=== PATIENT | male | born 1965 | race Caucasian/White ===

== ENCOUNTER 2025-06-20 10:42 | Day surgery (SDC) | payer SELFPAY ==
[2025-06-20] VITALS (8 sets, daily range): BP systolic 98–121; BP diastolic 71–79; PULSE 65–73; RESP 16; TEMP 36.2–37.3; O2SAT 95–100; BMI 28.2
[2025-06-20] MEDS: Lactated Ringers 1,000 ML 15 ML IV (11:42)
--- NOTE | 2025-06-20 11:58 | PCM.PRE.AN2 ---
ASA Classification* ASA Classification ASA Classification: 1 Assessment & Plan Anesthesia* Anesthesia Assessment Anesthesia Assessment: Discussed sedation and/or anesthesia options, risks, benefits, and alternatives with patient/parents/legal guardian/POA. Questions invited. The patient/parents/legal guardian/POA seems to understand and agrees to proceed with anesthesia plan. Reviewed the physical assessment, medical history, allergy history and patient home medications list prior to surgery/procedure/anesthetic and documented any changes. Performed airway and anesthesia risk assessments. 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 When Was Last Pacemaker Check QUESTION #4 FULL TEXT: You/Your Family Experience fever (hyperthermia) with Anesthesia Last Oral Intake Last Oral intake: Last Oral Intake NPO since 09:00 06/20/25 11:34 Meds taken in AM with sips of No 06/20/25 11:34 water? Meds patient instructed to take am of surgery PONV PONV - credit collections specialist: PONV - credit collections specialist Female No 06/14/25 13:59 HX of Motion Sickness No 06/14/25 13:59 HX of N/V After Surgery No 06/14/25 13:59 Non-Smoker Yes 06/14/25 13:59 Duration of Surgery greater No 06/14/25 13:59 than 60 minutes Number of Risk Factors 1 06/14/25 13:59 PONV Score Low Risk 06/14/25 13:59 Height & Weight Height & Weight: Anesthesia: Height & Weight Height 5 ft 8 in 06/20/25 11:34 Weight: 84.2 kg 06/20/25 11:34 Body Mass Index (BMI) 28.2 06/20/25 11:34 Respiratory Assessment Respiratory Assessment - credit collections specialist: Respiratory Tract Infection Hx - credit collections specialist Hx Respiratory Tract Infection No 06/14/25 13:59 STOP Sleep Apnea STOP Sleep Apnea - credit collections specialist: STOP Sleep Apnea - credit collections specialist Hx Hypertension No 06/14/25 13:59 Hx Sleep Apnea No 06/14/25 13:59 CPAP BIPAP Do you snore loudly (louder No 06/14/25 13:59 than talking or can be heard Do you often feel tired/ No 06/14/25 13:59 fatigued/ sleepy during daytime? Has anyone observed you stop No 06/14/25 13:59 breathing during sleep? STOP Results Negative 06/14/25 13:59 QUESTION #5 FULL TEXT : Do you snore loudly (louder than talking or can be heard through closed doors)? Tobacco Use History Tobacco Use History - credit collections specialist: Tobacco Use History - credit collections specialist Tobacco Use Smoking Status Never smoker 06/14/25 13:59 Hx Tobacco Use No 06/14/25 13:59 Years Smoking Packs Smoked per Day Smoking Cessation Date was within the last 15 years Hx Smoking Cessation Date Hx Smoking Cessation Counseling Hematologic Medial History Hematologic Hx - credit collections specialist: Hematologic Medical Hx - detention deputy Hx of Blood Transfusion No 06/14/25 13:59 Hx of Transfusion in last 3 No 06/14/25 13:59 Months Date of Last Transfusion (if within last 3 months) Ever experience any problems No 06/14/25 13:59 with transfusion(s)? Specify any problems Hx of Preganancy in last 3 N/A 06/14/25 13:59 Months Nurse Filling Out Transfusion VCHRISTIN 06/14/25 13:59 & Questions: Date: 06/14/25 06/14/25 13:59 Time: 14:01 06/14/25 13:59 Patient unable to answer at this time (ie. confused, unrespo /Reproduction History /Reproductive History - credit collections specialist: /Reproductive Hx- credit collections specialist Hx Now Gestational Age (in weeks): EDC: Hx Hx Para Hx Section SAB Does the father of the baby or his family experience fever w Father of the baby Malignant Hypertension history comment Active Medications Active Medications: Current Medications Generic Name Dose Route Start Last Admin Trade Name Freq PRN Reason Stop Dose Admin Lactated Ringer's 1,000 mls @ 15 mls/hr 06/20/25 11:15 06/20/25 11:42 IV 15 mls/hr .Q48H BRETT Administration PFSH Medical History Wears glasses Back pain Home Medications ?Medication ?Instructions ?Recorded ?Last Taken ?Type aspirin 81 mg tablet 81 mg PO DAILY 06/14/25 Unknown History atorvastatin 20 mg tablet (Lipitor) 20 mg PO QHS 06/14/25 Unknown History multivitamin (Daily Multi-Vitamin 1 tab PO DAILY 06/14/25 Unknown History tablet) niacin 250 mg tablet,extended 250 mg PO DAILY 06/14/25 Unknown History release (Endur-Acin) Allergy/AdvReac Type Severity Reaction Status Date / Time No Known Allergies Allergy Verified 06/20/25 11:33 Surgical History History of root canal procedure Hx of appendectomy Social History Smoking Status: Never smoker Review of Systems (Anesthesia) ROS Narrative System reviewed and no additional complaints, except as documented.
--- NOTE | 2025-06-20 12:31 | PCM.HP.STD ---
[facility] - General General Date of Admission: 06/20/25 Date of Service: 06/20/25 Chief Complaint: Screening colonoscopy HPI Narrative AMALIA HERNANDEZ, is a 60 M who presents [today for screening colonoscopy. He is never a colonoscopy in the past. He is not abdominal pain. He is not have any chest pain or shortness of breath. He does take aspirin and Lipitor on a daily basis along with a multivitamin.] [facility], [facility] Medical History Wears glasses Back pain Home Medications ?Medication ?Instructions ?Recorded ?Last Taken ?Type aspirin 81 mg tablet 81 mg PO DAILY 06/14/25 Unknown History atorvastatin 20 mg tablet (Lipitor) 20 mg PO QHS 06/14/25 Unknown History multivitamin (Daily Multi-Vitamin 1 tab PO DAILY 06/14/25 Unknown History tablet) niacin 250 mg tablet,extended 250 mg PO DAILY 06/14/25 Unknown History release (Endur-Acin) Allergy/AdvReac Type Severity Reaction Status Date / Time No Known Allergies Allergy Verified 06/20/25 11:33 Surgical History History of root canal procedure Hx of appendectomy Social History Smoking Status: Never smoker ROS Constitutional Constitutional: Denies fatigue, fever(s), poor appetite, weight gain or weight loss Gastrointestinal Gastrointestinal: Denies belching, bloating, change in bowel habits, change in stool character, chewing difficulty, coffee ground emesis, constipation, cramping, diarrhea, dyspepsia, dysphagia, early satiety, excessive flatus, fecal incontinence, heartburn, hematemesis, hematochezia, hemorrhoids, loose stools, melena, nausea, odynophagia, rectal bleeding, tenesmus, vomiting or weight changes Vital Signs Vital Signs Vital Signs: 06/20/25 11:34 06/20/25 11:34 06/20/25 11:59 Temperature 99.1 F 99.1 F Temperature Source Temporal Pulse Rate 66 66 Respiratory Rate 16 16 Respiratory Pattern Normal Blood Pressure 121/71 H 121/71 H Blood Pressure Mean 87 Blood Pressure Source Monitor Blood Pressure Position Semi-Fowlers Blood Pressure Location Right Arm Pulse Ox 98 98 Oxygen Delivery Method Room Air Room Air Weight Weight: 185 lb 10.067 oz Body Mass Index (BMI) 28.2 Physical Exam Const alert, oriented x3, no apparent distress and healthy appearing General Appearance: cooperative GI normal to inspection, nondistended, normoactive bowel sounds, soft to palpation, non-tender and non-distended Percussion: normal to percussion Rectal Exam: deferred Assessment & Plan Assessment/Plan (1) Encounter for screening colonoscopy: PLAN: He was explained alternatives, risk and benefits include not withstanding bleeding, infection, sepsis, perforation, need for return to . He will have an ASA of 3.
--- OUTSIDE RECORDS SUMMARY | 2025-06-20 13:12 | XMS RPT_ITS | CCD ---
Author Organization [facility] [employer] DIRECT[facility] Care Team Providers Care Copying Machine Mechanic Name Role Phone Ric Shea Primary Care Unavailable FriendGonzalo Attending Unavailable Encounters Encounter Date Encounter Type Care Provider Facility Start: 06-20-2025 [facility] Facility:[facility] Payers Date Payer Category Payer Self-pay Unknown [id number] Summary Purpose Family History No Family History Records Found Advance Directives No Advanced Directives Records Found Additional Source Comments (unrecognized sect ion and content) No Status Records Found INFORMATION SOURCE (unrecogn ized section and content) DATE CREATED AUTHOR 05/17/2025 [facility] FOR RECORDS PERTAINING TO PATIENTS WHO ARE OR HAVE BEEN ENROLLED IN A CHEMICAL DEPENDENCY/SUBSTANCEABUSE PROGRAM, SOME INFORMATION MAY BE OMITTED. This clinical summary was aggregated from multiple sources. Caution should be exercised in using it in the provision of clinical care. This summary normalizes information from multiple sources, and as a consequence, information in this document may materially change the coding, format and clinical context of patient data. In addition, data may be omitted in some cases. CLINICAL DECISIONS SHOULD BE BASED ON THE PRIMARY CLINICAL RECORDS. [employer] provides no warranty or guarantee of the accuracy or completeness of information in this document.
--- NOTE | 2025-06-20 13:40 | PCM.POST.ANE ---
Anesthesia: Postop Eval I Current Vital Signs Temperature: 97.1 F Pulse Rate: 73 Blood Pressure: 106/74 Respiratory Rate: 16 Pulse Ox: 96 Oxygen Delivery Method: Room Air Assessment Airway patent: Yes Spontaneous unlabored respirations: Yes Mental status: Asleep nausea: No Vomiting: No Anesthesia Complication: No Fluid Hydration Crystalloid volume administer (ml): 500 Total IV fluid infused: 500 Progress Note Anesthesia document: Postop Eval 1 completed: Yes
--- NOTE | 2025-06-20 13:48 | OP.COLON_ITS ---
Patient Name: Chencho Forbes Procedure Date: 06/20/2025 1:07 PM Date of : 1965 Age: 60 Procedure: Colonoscopy Indications: Screening for colorectal malignant neoplasm Providers: Gonzalo Nieto DO Referring MD: Ric Shea Medicines: Monitored Anesthesia Care Patient Profile: This is a 60 year old male. Refer to note in patient chart for documentation of history and physical. Last Colonoscopy: none. The patient's first colonoscopy is today. Complications: No immediate complications. Procedure: Pre-Anesthesia Assessment: - Prior to the procedure, a History and Physical was performed, and patient medications and allergies were reviewed. The patient is competent. The risks and benefits of the procedure and the sedation options and risks were discussed with the patient. All questions were answered and informed consent was obtained. Patient identification and proposed procedure were verified by the physician in the pre-procedure area. Mental Status Examination: alert and oriented. Airway Examination: normal oropharyngeal airway and neck mobility. Respiratory Examination: clear to auscultation. CV Examination: normal. Prophylactic Antibiotics: The patient does not require prophylactic antibiotics. Prior Anticoagulants: The patient has taken no anticoagulant or antiplatelet agents. ASA Grade Assessment: II - A patient with mild systemic disease. After reviewing the risks and benefits, the patient was deemed in satisfactory condition to undergo the procedure. The anesthesia plan was to use monitored anesthesia care (MAC). Immediately prior to administration of medications, the patient was re-assessed for adequacy to receive sedatives. The heart rate, respiratory rate, oxygen saturations, blood pressure, adequacy of pulmonary ventilation, and response to care were monitored throughout the procedure. The physical status of the patient was re-assessed after the procedure. After I obtained informed consent, the scope was passed under direct vision. Throughout the procedure, the patient's blood pressure, pulse, and oxygen saturations were monitored continuously. The Colonoscope was introduced through the anus and advanced to the cecum, identified by appendiceal orifice and ileocecal valve. The colonoscopy was performed without difficulty. The patient tolerated the procedure well. The quality of the bowel preparation was adequate. The ileocecal valve, appendiceal orifice, and rectum were photographed. Scope In: 1:20:24 PM Scope Withdrawal Time 0 hours 9 minutes 37 seconds Scope Out: 1:33:29 PM Total Procedure Duration Time 0 hours 13 minutes 5 seconds Findings: The perianal and digital rectal examinations were normal. Two small-mouthed diverticula were found in the recto-sigmoid colon. The exam was otherwise without abnormality on direct and retroflexion views. Impression: - Diverticulosis in the recto-sigmoid colon. - The examination was otherwise normal on direct and retroflexion views. - No specimens collected. Recommendation: - Discharge patient to home. - Resume previous diet. - Continue present medications. - Repeat colonoscopy in 10 years for screening purposes. Procedure Code(s): --- Professional --- G0121, Colorectal cancer screening; colonoscopy on individual not meeting criteria for high risk CPT copyright 2021 [employer]. All rights reserved. The codes documented in this report are preliminary and upon steam pipe fitter review may be revised to meet current compliance requirements. Gonzalo Nieto DO 06/20/2025 1:48:37 PM This report has been signed electronically. Number of Addenda: 0 Note Initiated On: 06/20/2025 1:07 PM
--- NOTE | 2025-06-20 13:49 | OP.PROVAT_ITS ---
06/20/2025 Ric Shea Re : Colonoscopy procedure for Chencho Forbes Dear Shabbir This procedure was performed on Friday, June 20, 2025. My impressions and recommendations are as follows: Impressions : - Diverticulosis in the recto-sigmoid colon. - The examination was otherwise normal on direct and retroflexion views. - No specimens collected. Recommendations : - Discharge patient to home. - Resume previous diet. - Continue present medications. - Repeat colonoscopy in 10 years for screening purposes. My findings are described in the full procedure note, which is enclosed. If I can be of further assistance, please feel free to contact me at . Sincerely, Gonzalo Nieto, 06/20/2025 1:48:37 PM This report has been signed electronically.
--- NOTE | 2025-06-20 15:27 | PCM.POSTANE2 ---
Anesthesia Postop Eval I Sum Postop Eval Completion status Anesthesia document: Postop Eval 1 completed: Yes Anesthesia Postop Eval I Summary Anesthesia Postop Eval I Summary: Anesthesia Postop Eval I: Assessment Summary Airway patent Yes 06/20/25 13:41 [email or web address] Spontaneous unlabored Yes 06/20/25 13:41 [email or web address] respirations Mental status Asleep 06/20/25 13:41 [email or web address] nausea No 06/20/25 13:41 [email or web address] Vomiting No 06/20/25 13:41 [email or web address] Anesthesia Postop Eval I: Fluid Summary Crystalloid volume administer 500 06/20/25 13:41 [email or web address] (ml) Colloids volume administered ( ml) Blood Product volume administered (ml) Total IV fluid infused 500 06/20/25 13:41 [email or web address] Anesthesia Postop Eval I: Summary Notes Anesthesia Complication No 06/20/25 13:41 [email or web address] Anesthesia Complication Comment: Post-operative progress note Anesthesia: Postop Eval II Evaluation Mental status: Awake and Calm Pain Level: 1 nausea: No Vomiting: No Complications Anesthesia Complication: No
== END 2025-06-20 14:33 | disposition home or self-care (01) ==
LOC: EN 10:50 → AC 10:51
PROVIDERS: PCP Family Medicine; Referring Provider Family Medicine; Visit Provider Internal Medicine Gastroenterology
PROC: 0DJD8ZZ Inspection of Lower Intestinal Tract, Via Natural or Artificial Opening Endoscopic (ICD-10-PCS; CPT 45378; principal; 2025-06-20 12:25)
DX: Z12.11 Encounter for screening for malignant neoplasm of colon (principal); K57.90 Diverticulosis of intestine, part unspecified, without perforation or abscess without bleeding; Z79.82 Long term (current) use of aspirin; Z79.899 Other long term (current) drug therapy
CPT/HCPCS: G0121; J2405